=== PATIENT | male | born 1960 | race Caucasian/White ===

== ENCOUNTER → 2016-08-06 | Outpatient (CLI) | payer OTHER ==
[~2016-08-06] MED LIST: ACET325T14 PO; ASCO100T5 PO; BIOT25004 PO; CHOL200024 PO; COPPER PO; GLUC500T8 PO; HYDR-3240 PO; LEVE500T53 PO; MARSHMALLOW ROOT PO; METH4TAB2 PO; OMEP-110 PO; RANI150T4 PO; SENN-31 PO; SIMV20TA3 PO; SLIPPERY ELM PO; VITAMIN A PO; VITAMIN E PO; ZINC PO
[2016-08-06 13:07] LABS: BLOOD UREA NITROGEN 9 mg/dL (7-18)
[2016-08-06 13:11] LABS: ASPARTATE AMINO TRANSFERASE 20 U/L (15-37)
== END | disposition home or self-care (01) ==
LOC: STAR 11:24
PROVIDERS: ATTEND Neurological Surgery
DX: Z01.818 Encounter for other preprocedural examination (principal); D49.6 Neoplasm of unspecified behavior of brain
CPT/HCPCS: 36415; 71020; 80053; 81003; 85025; 85610; 85730; 93005

== ENCOUNTER 2016-08-18 05:40 | Inpatient (IN) | payer BC, OTHER ==
[~2016-08-18] VITALS: Ht 180.3 cm; Wt 83.1 kg
[2016-08-18] MEDS ORDERED: LACTATED RINGERS 1,000 ML IV SCH (06:18)
[2016-08-18 06:19] VITALS: BP 131/86
[2016-08-18] MEDS ORDERED: BACITRACIN 50,000 UNIT ONE (06:21)
[2016-08-18] MEDS ORDERED: BUPIVACAINE/PF-EPI 0.5% 1:200K ONE (06:21)
[2016-08-18] MEDS ORDERED: THROMBIN 5,000 UNIT VIAL TP ONE (06:21)
[2016-08-18] MEDS ORDERED: THROMBIN 20,000 UNIT VIAL TP ONE (06:27)
[2016-08-18] MEDS ORDERED: LIDOCAINE 1%, 2ML SQ PRN (06:30)
[2016-08-18] MEDS ORDERED: MIDAZOLAM 1 MG/ML, 2ML ONE (06:54)
[2016-08-18] MEDS ORDERED: FENTANYL PF 250 MCG/5ML ONE ×2 (06:54→08:49)
[2016-08-18] MEDS ORDERED: ROCURONIUM 10 MG/ML ONE (07:40)
[2016-08-18] MEDS ORDERED: EPHEDRINE 50 MG/ML, 1ML ONE (07:40)
[2016-08-18] MEDS ORDERED: LABETALOL 5MG/ML, 20ML ONE (07:40)
[2016-08-18] MEDS ORDERED: CEFUROXIME 1.5 GM ONE (07:40)
[2016-08-18] MEDS ORDERED: ONDANSETRON 2MG/ML, 2ML ONE (07:40)
[2016-08-18] MEDS ORDERED: DEXAMETHASONE 4 MG/ML, 5ML ONE (07:40)
[2016-08-18] MEDS ORDERED: PROPOFOL 10 MG/ML, 20ML ONE (07:40)
[2016-08-18] MEDS ORDERED: LEVETIRACETAM 1,000 MG in SODIUM CHLORIDE 0.9% 100 ML IV ONE (08:30)
[2016-08-18] MEDS ORDERED: MEPERIDINE/PF 25MG/0.5ML IVPush PRN (09:30)
[2016-08-18] MEDS ORDERED: LABETALOL 5MG/ML, 20ML IV PRN (09:30)
[2016-08-18] MEDS ORDERED: FENTANYL PF 100 MCG/2ML IV PRN (09:30)
[2016-08-18] MEDS ORDERED: PROMETHAZINE 25 MG/ML, 1ML IV PRN (09:30)
[2016-08-18] MEDS ORDERED: HYDROmorphone 1 MG/ML, 1ML IV PRN (09:30)
[2016-08-18] MEDS ORDERED: ONDANSETRON 2MG/ML, 2ML IVPush PRN (09:30)
[2016-08-18] MEDS ORDERED: METOPROLOL 1 MG/ML, 5ML IV PRN (09:30)
[2016-08-18] MEDS ORDERED: METOCLOPRAMIDE 5 MG/ML, 2ML IV PRN (09:30)
[2016-08-18] MEDS ORDERED: hydrALAzine 20 MG/ML, 1ML IV PRN (09:30)
[2016-08-18] MEDS ORDERED: EPHEDRINE 50 MG/ML, 1ML IVPush PRN (09:30)
[2016-08-18] MEDS ORDERED: ACETAMINOPHEN 325 MG TABLET PO PRN ×2 (09:30→11:00)
[2016-08-18] MEDS ORDERED: OXYcodone 5 MG/5 ML ORAL.SOL UDC PO PRN (09:30)
[2016-08-18] MEDS ORDERED: VANCOMYCIN 500 MG ONE (10:12)
[2016-08-18] MEDS ORDERED: FENTANYL PF 100 MCG/2ML ONE (11:15)
[2016-08-18] MEDS ORDERED: OXYcodone 5 MG/5 ML ORAL.SOL UDC ONE (11:16)
[2016-08-18] MEDS: OXYcodone/APAP 5/325MG TABLET PO PRN ×2 (12:09→22:08)
[2016-08-18] MEDS: POTASSIUM CHLORIDE 20 MEQ in SODIUM CHLORIDE 0.9% 1,000 ML IV SCH ×2 (13:57→14:03)
[2016-08-18] MEDS: HYDROmorphone 2 MG/ML, 1ML IV PRN ×2 (14:03→22:51)
[2016-08-18] MEDS: CEFUROXIME 1.5 GM in SODIUM CHLORIDE 0.9% 50 ML IVPB SCH (17:49)
[2016-08-18] MEDS: ONDANSETRON 2MG/ML, 2ML IV PRN (19:00)
[2016-08-19] MEDS: CEFUROXIME 1.5 GM in SODIUM CHLORIDE 0.9% 50 ML IVPB SCH (00:08)
[2016-08-19] MEDS: POTASSIUM CHLORIDE 20 MEQ in SODIUM CHLORIDE 0.9% 1,000 ML IV SCH (02:51)
[2016-08-19 04:45] VITALS: BP 106/58
[2016-08-19] MEDS: HYDROmorphone 2 MG/ML, 1ML IV PRN (05:23)
[2016-08-19 05:37] LABS: BLOOD UREA NITROGEN 10 mg/dL (7-18)
[2016-08-19] MEDS: SENNA/DOCUSATE TABLET PO SCH (09:14)
[2016-08-19] MEDS ORDERED: ACETAMINOPHEN 325 MG TABLET PO PRN (10:22)
[2016-08-19] MEDS: OXYcodone/APAP 5/325MG TABLET PO PRN ×2 (10:46→16:15)
[2016-08-19] MEDS: MAGNESIUM HYDROXIDE 8%, 30ML UDC PO PRN (16:15)
[2016-08-19 18:39] VITALS: BP 120/75
[2016-08-19] MEDS: ONDANSETRON 2MG/ML, 2ML IV PRN (18:56)
[2016-08-20] MEDS: OXYcodone/APAP 5/325MG TABLET PO PRN ×5 (00:30→21:42)
[2016-08-20 02:44] VITALS: BP 135/85
[2016-08-20 07:03] VITALS: BP 143/83
[2016-08-20] MEDS: DEXAMETHASONE 4 MG/ML, 1ML IVPush SCH ×4 (09:29→21:41)
[2016-08-20] MEDS: SENNA/DOCUSATE TABLET PO SCH (09:30)
[2016-08-20] MEDS: MAGNESIUM HYDROXIDE 8%, 30ML UDC PO PRN (09:32)
[2016-08-20 13:07] VITALS: BP 145/101
[2016-08-20] MEDS: BISACODYL 10 MG SUPP PR PRN (15:46)
[2016-08-20 19:31] VITALS: BP 124/81
[2016-08-20 23:12] VITALS: BP 139/91
[2016-08-21 02:11] VITALS: BP 131/87
[2016-08-21] MEDS: DEXAMETHASONE 4 MG/ML, 1ML IVPush SCH ×4 (03:32→21:04)
[2016-08-21 04:12] VITALS: BP 130/85
[2016-08-21 06:47] VITALS: BP 157/95
[2016-08-21] MEDS ORDERED: LORazepam 2 MG/ML, 1ML ONE (07:37)
[2016-08-21] MEDS ORDERED: ASCORBIC ACID 500 MG TABLET PO SCH (09:00)
[2016-08-21] MEDS ORDERED: LEVETIRACETAM 500 MG TABLET PO ONE (09:00)
[2016-08-21] MEDS: SENNA/DOCUSATE TABLET PO SCH (09:43)
[2016-08-21 14:27] VITALS: BP 123/83
[2016-08-21] MEDS: LEVETIRACETAM 500 MG TABLET PO SCH ×2 (15:27→21:03)
[2016-08-21] MEDS: OXYcodone/APAP 5/325MG TABLET PO PRN ×2 (15:33→21:04)
[2016-08-21 19:36] VITALS: BP 137/88
[2016-08-22 02:27] VITALS: BP 123/80
[2016-08-22] MEDS: DEXAMETHASONE 4 MG/ML, 1ML IVPush SCH ×4 (03:39→21:59)
[2016-08-22] MEDS: LEVETIRACETAM 500 MG TABLET PO SCH ×3 (08:23→21:59)
[2016-08-22] MEDS: SENNA/DOCUSATE TABLET PO SCH (08:23)
[2016-08-22] MEDS: OXYcodone/APAP 5/325MG TABLET PO PRN ×3 (08:23→21:59)
[2016-08-22 08:41] VITALS: BP 129/85
[2016-08-22] MEDS ORDERED: CALCIUM CARBONATE 500 MG TAB.CHEW PO PRN (09:30)
[2016-08-22 13:38] VITALS: BP 130/83
[2016-08-22] MEDS: MAGNESIUM HYDROXIDE 8%, 30ML UDC PO PRN (16:55)
[2016-08-22 20:38] VITALS: BP 129/85
[2016-08-23] MEDS: DEXAMETHASONE 4 MG/ML, 1ML IVPush SCH ×2 (04:10→10:07)
[2016-08-23 04:23] VITALS: BP 112/72
[2016-08-23] MEDS: BISACODYL 10 MG SUPP PR PRN (05:53)
[2016-08-23 07:02] VITALS: BP 139/98
[2016-08-23] MEDS ORDERED: LEVE500T53 PO (08:43)
[2016-08-23] MEDS ORDERED: OXYC-302 PO (08:43)
[2016-08-23] MEDS ORDERED: [UNRECOGNIZED DRUG - CODE] PO (08:44)
[2016-08-23] MEDS ORDERED: FAMO-79 PO (08:45)
[2016-08-23] MEDS: SENNA/DOCUSATE TABLET PO SCH (10:07)
[2016-08-23] MEDS: LEVETIRACETAM 500 MG TABLET PO SCH (10:07)
== END 2016-08-23 11:10 | disposition home or self-care (01) | DRG 26 ==
LOC: ORIP 05:40 → CCU 11:58 → 5SO 08-19 11:57 → 4NOR 08-19 16:47
PROVIDERS: ADMIT Neurological Surgery; ATTEND Neurological Surgery
PROC: D020DZZ Stereotactic Other Photon Radiosurgery of Brain (ICD-10-PCS; 2016-08-18)
PROC: 00B00ZZ Excision of Brain, Open Approach (ICD-10-PCS; principal; 2016-08-18 07:30)
DX: C71.1 Malignant neoplasm of frontal lobe (principal); G40.89 Other seizures; Z87.891 Personal history of nicotine dependence; Z23 Encounter for immunization; Z82.49 Family history of ischemic heart disease and other diseases of the circulatory system; K21.9 Gastro-esophageal reflux disease without esophagitis
CPT/HCPCS: 36415; 70450; 70553; 80048; 85025; 86850; 86900; 86923; 87081; 88300; 88307; 88331; 94002; 94640; A9585; C1713; J0697; J1100; J1170; J2250; J2405; J2704; J3010; J3370; J3480; A4648; C1768; C1781; J7030

== ENCOUNTER → 2017-03-08 | Outpatient (CLI) | payer OTHER ==
[~2017-03-08] MED LIST changes: -BIOT25004 PO; +BIOT25005 PO; +FAMO-79 PO; +GLUC500T11 PO; -GLUC500T8 PO; +OXYC-302 PO; +[UNRECOGNIZED DRUG - CODE] PO
== END | disposition home or self-care (01) ==
LOC: ROC 13:12
PROVIDERS: ATTEND Radiology Radiation Oncology
DX: C71.3 Malignant neoplasm of parietal lobe (principal)
CPT/HCPCS: 99213; G0463

== ENCOUNTER → 2017-03-30 | Outpatient (CLI) | payer OTHER ==
[~2017-03-30] MED LIST changes: +GADOBUTROL 7.5 MMOL/7.5 ML PFS ONE
== END | disposition home or self-care (01) ==
LOC: CFH 10:43
PROVIDERS: ATTEND Radiology Radiation Oncology
DX: C71.1 Malignant neoplasm of frontal lobe (principal); J34.1 Cyst and mucocele of nose and nasal sinus; Z98.890 Other specified postprocedural states
CPT/HCPCS: 70553; A9585

== ENCOUNTER → 2017-07-26 | Outpatient (CLI) | payer OTHER ==
[~2017-07-26] MED LIST changes: +GADOBUTROL 10 MMOL/10 ML VIAL ONE; -GADOBUTROL 7.5 MMOL/7.5 ML PFS ONE
== END | disposition home or self-care (01) ==
LOC: CFH 09:05
PROVIDERS: ATTEND Internal Medicine Hematology & Oncology
DX: C71.9 Malignant neoplasm of brain, unspecified (principal)
CPT/HCPCS: 70553; A9585

== ENCOUNTER → 2017-10-04 | Outpatient (CLI) | payer OTHER ==
[~2017-10-04] MED LIST changes: +GADOBUTROL 7.5 MMOL/7.5 ML PFS ONE
== END | disposition home or self-care (01) ==
LOC: CFH 12:49
PROVIDERS: ATTEND Internal Medicine Hematology & Oncology
DX: C71.9 Malignant neoplasm of brain, unspecified (principal); G93.89 Other specified disorders of brain
CPT/HCPCS: 70553; A9585

== ENCOUNTER → 2018-01-03 | Outpatient (CLI) | payer OTHER ==
[~2018-01-03] MED LIST changes: -GADOBUTROL 10 MMOL/10 ML VIAL ONE
== END | disposition home or self-care (01) ==
LOC: CFH 13:31
PROVIDERS: ATTEND Neurological Surgery
DX: G93.89 Other specified disorders of brain (principal); C71.1 Malignant neoplasm of frontal lobe
CPT/HCPCS: 70553; A9585

== ENCOUNTER → 2018-05-06 | Outpatient (CLI) | payer OTHER ==
[~2018-05-06] MED LIST changes: +GADOBUTROL 10 MMOL/10 ML PFS ONE; -GADOBUTROL 7.5 MMOL/7.5 ML PFS ONE
== END | disposition home or self-care (01) ==
LOC: CFH 13:43
PROVIDERS: ATTEND Internal Medicine Hematology & Oncology
DX: C71.1 Malignant neoplasm of frontal lobe (principal); G93.89 Other specified disorders of brain; G31.9 Degenerative disease of nervous system, unspecified
CPT/HCPCS: 70553; A9585

== ENCOUNTER → 2018-06-15 | Outpatient (CLI) | payer OTHER ==
[~2018-06-15] MED LIST changes: -GADOBUTROL 10 MMOL/10 ML PFS ONE
== END | disposition home or self-care (01) ==
LOC: PETCFH 08:21
PROVIDERS: ATTEND Neurological Surgery
DX: C71.1 Malignant neoplasm of frontal lobe (principal)
CPT/HCPCS: 78608; A9552

== ENCOUNTER → 2019-03-21 | Outpatient (CLI) | payer OTHER ==
[~2019-03-21] MED LIST changes: +GADOTERATE 7.5 MMOL/15 ML SYR ONE
== END | disposition home or self-care (01) ==
LOC: CFH 12:51
PROVIDERS: ATTEND Neurological Surgery
DX: D43.2 Neoplasm of uncertain behavior of brain, unspecified (principal); G93.89 Other specified disorders of brain
CPT/HCPCS: 70553; A9575

== ENCOUNTER 2020-12-05 07:25 | Outpatient (CLI) | payer OTHER ==
[~2020-12-05 07:25] MED LIST changes: -GADOTERATE 7.5 MMOL/15 ML SYR ONE; +HYDR-2214 PO; -HYDR-3240 PO; -OXYC-302 PO; +OXYC1TAB12 PO; +SIMV20TA19 PO; -SIMV20TA3 PO
== END 2020-12-05 23:59 | disposition home or self-care (01) ==
LOC: ROC 07:25
PROVIDERS: ATTEND Radiology Radiation Oncology
DX: C71.1 Malignant neoplasm of frontal lobe (principal)
CPT/HCPCS: 99214; G0463